=== PATIENT | male | born 1985 | race American Indian/Alaskan Native ===

== ENCOUNTER 2017-09-17 12:13 | Emergency (ER) | payer SELFPAY ==
[2017-09-17 12:20] VITALS: BP 156/84
--- NOTE | 2017-09-17 12:40 | Emergency Department Report ---
ED ENT HPI - General Chief complaint: Earache Stated complaint: CANT HEAR IN RIGHT EAR Time Seen by Provider: 09/17/17 12:30 Source: patient Mode of arrival: Ambulatory Limitations: No Limitations - History of Present Illness MD complaint: ear pain -: Gradual, days(s) Location: R ear Severity: moderate Severity scale (0 -10): 4 Consistency: constant Associated Symptoms: denies: fever, cough, gum swelling - Related Data Allergies Allergy/AdvReac Type Severity Reaction Status Date / Time No Known Allergies Allergy Unverified 09/17/17 12:17 ED Dental HPI - General Chief complaint: Earache Stated complaint: CANT HEAR IN RIGHT EAR Time Seen by Provider: 09/17/17 12:30 Source: patient Mode of arrival: Ambulatory Limitations: No Limitations - Related Data Allergies Allergy/AdvReac Type Severity Reaction Status Date / Time No Known Allergies Allergy Unverified 09/17/17 12:17 ED Review of Systems ROS: Stated complaint: CANT HEAR IN RIGHT EAR Other details as noted in HPI Comment: All other systems reviewed and negative Constitutional: denies: chills, fever ENT: ear pain. denies: throat pain, dental pain, hearing loss Cardiovascular: denies: chest pain, palpitations, dyspnea on exertion Gastrointestinal: denies: abdominal pain, nausea, vomiting, diarrhea Musculoskeletal: denies: back pain ED Past Medical Hx - Past Medical History Previous Medical History?: No - Surgical History Past Surgical History?: No - Social History Smoking Status: Never Smoker Substance Use Type: Alcohol ED Physical Exam - General Limitations: No Limitations General appearance: alert, in no apparent distress - Head Head exam: Present: atraumatic, normocephalic, normal inspection - Eye Eye exam: Present: normal appearance, PERRL - ENT ENT exam: Present: normal exam, normal orophraynx, mucous membranes moist, other (right tympanic membrane erythema) - Neck Neck exam: Present: normal inspection, full ROM. Absent: tenderness, meningismus - Respiratory Respiratory exam: Present: normal lung sounds bilaterally - Cardiovascular Cardiovascular Exam: Present: regular rate, normal heart sounds ED Course Vital Signs 09/17/17 12:17 Temperature 98.3 F Pulse Rate 90 Respiratory 18 Rate Blood Pressure 156/84 O2 Sat by Pulse 98 Oximetry Critical care attestation.: If time is entered above; I have spent that time in minutes in the direct care of this critically ill patient, excluding procedure time. ED Disposition Clinical Impression: Right otitis media Disposition: DC-01 TO HOME OR SELFCARE Is pt being admited?: No Condition: Stable Instructions: Otitis Media (ED)
== END 2017-09-17 12:50 | disposition home or self-care (01) ==
LOC: ED 12:13
DX: H66.91 Otitis media, unspecified, right ear (principal)
CPT/HCPCS: 99282